=== PATIENT | male | born 1960 | race Native Hawaiian/Other Pacific Islander ===

== ENCOUNTER 2018-08-01 14:12 | Outpatient (CLI) | payer BC | END 2018-08-01 19:36 | disposition home or self-care (01) | LOC: RAD 14:12 | DX: M25.562 Pain in left knee (principal) ==

== ENCOUNTER 2019-02-23 11:03 | Outpatient (CLI) | payer BC | END 2019-02-23 19:27 | disposition home or self-care (01) | LOC: RAD 11:03 | DX: M25.562 Pain in left knee (principal) ==

== ENCOUNTER 2019-12-29 16:16 | Outpatient (CLI) | payer BC | END 2019-12-29 19:37 | disposition home or self-care (01) | LOC: RAD 16:16 | DX: M25.562 Pain in left knee (principal) ==

== ENCOUNTER 2021-10-03 12:54 | Outpatient (CLI) | payer BC | END 2021-10-03 19:04 | disposition home or self-care (01) | LOC: RESP 12:54 → US 13:00 → RESP 13:00 | PROVIDERS: ATTEND Internal Medicine | DX: G56.01 Carpal tunnel syndrome, right upper limb (principal); G56.21 Lesion of ulnar nerve, right upper limb; E07.89 Other specified disorders of thyroid | CPT/HCPCS: 95885; 95909 ==

== ENCOUNTER 2023-06-11 11:03 | Observation (INO) | payer BC ==
[~2023-06-11] VITALS: Ht 180.3 cm; Wt 92.6 kg
[2023-06-11] VITALS (10 sets, daily range): BP systolic 130–144; BP diastolic 65–81; TEMP 97.6–98; Ht 180.3 cm; Wt 92.6 kg
[~2023-06-11 11:03] MED LIST: DOXA2TAB PO; HYDR25TA60 PO; LEVAQUIN250 MG PO; LISI10TA11 PO; PANTOPRAZOLE 40MG TA PO; SILDENAFIL20 MG PO
[2023-06-11 11:21] LABS: PLATELET COUNT 255 K/uL (142-355)
[2023-06-11 11:25] LABS: POTASSIUM 2.8 mmol/L (3.6-5.2)
[2023-06-11 11:55] LABS: PARTIAL THROMBOPLASTIN TIME 22.9 SECONDS (23.9-36.7)
[2023-06-11] MEDS ORDERED: ZOLPIDEM TARTRATE PO (16:49)
[2023-06-11] MEDS ORDERED: ONDA4TAB3 PO (16:50)
[2023-06-11] MEDS ORDERED: MOBIC15 MG PO (16:50)
[2023-06-11] MEDS ORDERED: WEGOVY2.4 MG/0.7 SC (16:51)
[2023-06-11] MEDS ORDERED: SILDENAFIL20 MG PO (16:51)
[2023-06-11] MEDS ORDERED: CIALIS5 MG PO (16:52)
[2023-06-11] MEDS ORDERED: CARDURA8 MG PO (16:52)
[2023-06-11] MEDS ORDERED: LISITAB PO (16:53)
[2023-06-11 20:09] LABS: POTASSIUM 3.6 mmol/L (3.6-5.2)
[2023-06-12 03:44] VITALS: BP 113/65; TEMP 97.7
[2023-06-12 05:16] LABS: POTASSIUM 4.4 mmol/L (3.6-5.2)
[2023-06-12 08:00] VITALS: BP 127/74; TEMP 97.7
== END 2023-06-12 09:34 | disposition home or self-care (01) ==
LOC: ED 11:03 → MED/SURG 12:41
PROVIDERS: Family Medicine; ADMIT Internal Medicine; ATTEND Internal Medicine
DX: R11.2 Nausea with vomiting, unspecified (principal); E86.0 Dehydration; E87.6 Hypokalemia; N40.0 Benign prostatic hyperplasia without lower urinary tract symptoms; K21.9 Gastro-esophageal reflux disease without esophagitis
CPT/HCPCS: 36415; 80048; 80053; 82550; 83735; 84100; 84484; 85027; 85610; 85730; 93005; 96360; 96361; 96365; 96372; 96375; 99221; 99284; G0378; J1200; J1650; J2270